=== PATIENT | male | born 1975 | race Caucasian/White ===

== ENCOUNTER 2018-07-29 09:32 | Inpatient (IN) | payer OTHER ==
--- NOTE | 2018-07-29 09:49 | HP ---
COWS - Scale Resting Pulse: 1= [place] 81-100 Sweatin= Chills/Flushing Restless Observation: 3= Extraneous Movement Pupil Size: 1= Pupils >than Normal Bone or Joint Aches: 2= Severe Diffuse Aches Runny Nose/ Eye Tearin= Runny Nose/Eyes GI Upset > 30mins: 3= Vomiting/Diarrhea Tremor Observation: 2= Slight Tremor Visible Yawning Observation: 2= >3x During Session Anxiety or Irritability: 2=Irritable/Anxious Goose Flesh Skin: 0=Smooth Skin COWS Score: 19 Admission ROS S - HPI Chief Complaint: i need help to stop using heroin and klonopin Allergies/Adverse Reactions: Allergies Allergy/AdvReac Type Severity Reaction Status Date / Time No Known Allergies Allergy Verified 07/29/18 11:22 History of Present Illness: this 42 years old male with heroin and klonopin dependence,seeking detox, patient has been prescribed suboxone 8mgs/2 mgs bid and klonopin 1 mg daily patient did not want to continue suboxone any more and the provider agreed for the patient for detox weight loss 20 lbs on probation nicotine dependence anxiety,depression,insomnia longest period of sobriety 2 years multiple admissions last detox ,last [facility]/15 to 10/25/15 not completed Exam Limitations: No Limitations - Ebola screening Have you traveled outside of the country in the last 21 days: No Have you had contact with anyone from an Ebola affected area: No Do you have a fever: No - Review of Systems Constitutional: Loss of Appetite, Malaise, Night Sweats, Changes in sleep, Weakness, Unintentional Wgt. Loss EENT: reports: Tearing, Nose Congestion Respiratory: reports: No Symptoms reported Cardiac: reports: No Symptoms Reported GI: reports: Nausea, Vomiting, Abdominal cramping : reports: No Symptoms Reported Musculoskeletal: reports: Back Pain, Joint Pain, Muscle Pain, Joint Stiffness Integumentary: reports: Dryness Neuro: reports: Headache, Tremors Endocrine: reports: No Symptoms Reported Hematology: reports: No Symptoms Reported Psychiatric: reports: No Sypmtoms Reported, Judgement Intact, Mood/Affect Appropiate, Orientated x3, Agitated, Depressed Patient History - Patient Medical History Hx Anemia: No Hx Asthma: No Hx Chronic Obstructive Pulmonary Disease (COPD): No Hx Cancer: No Hx Cardiac Disorders: No Hx Congestive Heart Failure: No Hx Hypertension: No Hx Hypercholesterolemia: No Hx Pacemaker: No HX Cerebrovascular Accident: No Hx Seizures: No Hx Dementia: No Hx Diabetes: No Hx Gastrointestinal Disorders: No Hx Liver Disease: Yes Hx Genitourinary Disorders: No Hx Sexually Transmitted Disorders: No Hx Renal Disease (ESRD): No Hx Thyroid Disease: No Hx Human Immunodeficiency Virus (HIV): No Hx Hepatitis C: Yes (not treated) Hx Depression: Yes Hx Suicide Attempt: Yes (2008) Hx Bipolar Disorder: Yes (sees psych, on meds) Hx Schizophrenia: No Other Medical History: hepatitis c,no suicidal,no homicidal - Patient Surgical History Past Surgical History: No Hx Neurologic Surgery: No Hx Cataract Extraction: No Hx Cardiac Surgery: No Hx Lung Surgery: No Hx Breast Surgery: No Hx Breast Biopsy: No Hx Abdominal Surgery: No Hx Appendectomy: No Hx Cholecystectomy: No Hx Genitourinary Surgery: No Hx Section: No Hx Orthopedic Surgery: No Anesthesia Reaction: No - PPD History Previous Implant?: Yes Documented Results: Positive w/o proof [facility] Yes Date: 01/14/15 Results: 0mm PPD to be Administered?: Yes - Smoking Cessation Smoking history: Current every day smoker Have you smoked in the past 12 months: Yes Aproximately how many cigarettes per day: 10 Hx Chewing Tobacco Use: No Initiated information on smoking cessation: Yes 'Breaking Loose' booklet given: 07/29/18 - Substance & Tx. History Hx Alcohol Use: No Hx Substance Use: Yes Substance Use Type: Heroin, Tranquilizers Hx Substance Use Treatment: Yes ([facility] 10/23/15 to 10/25/15 not copleted) - Substances Abused Heroin Route: Injection Frequency: Daily Amount used: 5-6 bags Age of first use: 18 Date of Last Use: 07/28/18 Benzodiazepine (Klonopin) Route: Oral Frequency: Daily Amount used: 1 mg Age of first use: 42 Date of Last Use: 07/29/18 Family Disease History - Family Disease History Family Disease History: Other: Father (drug use, hep C,cirrhosis,), Mother (drug overdose,) Admission Physical Exam BHS - Vital Signs Vital Signs: Vital Signs Temperature 97.8 F 07/29/18 09:43 Pulse Rate 85 07/29/18 09:43 Respiratory Rate 16 07/29/18 09:43 Blood Pressure 134/87 07/29/18 09:43 O2 Sat by Pulse Oximetry (%) - Physical General Appearance: Yes: Moderate Distress, Irritable, Sweating, Anxious HEENTM: Yes: Normal ENT Inspection, ELY, Pharynx Normal Respiratory: Yes: Lungs Clear, Normal Breath Sounds, No Respiratory Distress Neck: Yes: Within Normal Limits, Supple, Trachea in good position Breast: Yes: Within Normal Limits Cardiology: Yes: Within Normal Limits, Regular Rhythm, Regular Rate, S1, S2 Abdominal: Yes: Within Normal Limits, Normal Bowel Sounds, Non Tender, Flat, Soft Genitourinary: Yes: Within Normal Limits Back: Yes: Muscle Spasm Musculoskeletal: Yes: Back pain, Muscle Pain Extremities: Yes: Normal Range of Motion, Tremors Neurological: Yes: software performance engineer II-XII NML intact, Fully Oriented, Alert, Motor Strength 5/5 Integumentary: Yes: Dry Lymphatic: Yes: Within Normal Limits - Diagnostic (1) Opioid dependence with withdrawal Current Visit: No Status: Acute (2) Benzodiazepine dependence Current Visit: No Status: Acute (3) Bipolar depression Current Visit: No Status: Acute (4) Nicotine dependence Current Visit: No Status: Acute Qualifiers: Nicotine product type: cigarettes Substance use status: uncomplicated Qualified Code(s): F17.210 - Nicotine dependence, cigarettes, uncomplicated (5) Hepatitis C Current Visit: No Status: Chronic Qualifiers: Viral hepatitis chronicity: chronic Hepatic coma status: without hepatic coma Qualified Code(s): B18.2 - Chronic viral hepatitis C (6) Weight loss Current Visit: Yes Status: Acute Cleared for Admission [facility] - Detox or Rehab [facility] Level of Care: Medically Managed Detox Regimen/Protocol: Methadone [facility] Breath Alcohol Content Breath Alcohol Content: 0
[2018-07-29 09:50] VITALS: BMI 26.6
[2018-07-29] MEDS ORDERED: LOPERAMIDE HCL 2 MG CAPSULE PO PRN (12:33)
[2018-07-29] MEDS ORDERED: MAGNESIUM CITRATE 300 ML BOTTLE PO PRN (12:33)
[2018-07-29] MEDS ORDERED: MAG HYDROX/AL HYDROX/SIMETH 30 ML UNIT-DOSE CUP PO PRN (12:33)
[2018-07-29] MEDS ORDERED: MENTHOL/PHENOL 1 EACH UD MM PRN (12:33)
[2018-07-29] MEDS ORDERED: NICOTINE POLACRILEX 2 MG GUM BC PRN (12:33)
[2018-07-29] MEDS ORDERED: IBUPROFEN 400 MG TABLET (FP) PO PRN (12:33)
[2018-07-29] MEDS ORDERED: guaiFENesin/D-METHORPHAN HB 10 ML UNIT-DOSE CUPS PO PRN (12:33)
[2018-07-29] MEDS ORDERED: ACETAMINOPHEN 325 MG TABLET (FP) PO PRN (12:33)
[2018-07-29] MEDS ORDERED: P-EPHED 60MG/TRIPROLIDI 2.5MG TABLET PO PRN (12:33)
[2018-07-29] MEDS ORDERED: MAGNESIUM HYDROX 2400MG/30ML ORAL SUSPENSION 30 ML CUP PO PRN (12:33)
[2018-07-29] MEDS ORDERED: METHADONE HCL 10 MG TABLET (FOR DETOX USE ONLY) PO ONE ×2 (13:45→23:00)
[2018-07-29 18:52] LABS: URINE APPEARANCE CLOUDY; URINE BILIRUBIN NEGATIVE (<2.0 mg/dL); URINE COLOR DKYELLOW; URINE GLUCOSE (UA) NEGATIVE (NEGATIVE); URINE KETONE NEGATIVE (NEGATIVE); URINE LEUK ESTERASE NEGATIVE (NEGATIVE); URINE NITRITE NEGATIVE (NEGATIVE); URINE PROTEIN NEGATIVE (NEGATIVE); URINE UROBILINOGEN 4.0 E.U/dl mg/dL (0.2-1.0)
[2018-07-29] MEDS: cloNIDine HCL 0.1 MG TABLET PO SCH (22:14)
[2018-07-29] MEDS: THIAMINE HCL 100 MG TABLET (FP) PO SCH (22:14)
[2018-07-29] MEDS: MELATONIN 5 MG TABLETS PO PRN (22:15)
[2018-07-29] MEDS: diazePAM 5 MG TABLET PO PRN (22:17)
[2018-07-30] MEDS ORDERED: METHADONE HCL 10 MG TABLET (FOR DETOX USE ONLY) PO ONE (10:00)
[2018-07-30] MEDS: PRENATAL VITAMINS W/ FOLIC ACID TABLET (FP) PO SCH (10:31)
[2018-07-30] MEDS: cloNIDine HCL 0.1 MG TABLET PO SCH ×2 (10:31→22:09)
[2018-07-30] MEDS: diazePAM 5 MG TABLET PO PRN ×2 (10:31→22:09)
[2018-07-30 10:34] LABS: HEMATOCRIT 45.5 % (35.4-49); HEMOGLOBIN 14.8 GM/dL (11.7-16.9); MCHC 32.6 g/dl (32.0-35.9); PLATELET COUNT 253 K/MM3 (134-434); RBC 5.29 M/mm3 (4.00-5.60); RDW 13.9 % (11.9-15.9); WHITE BLOOD COUNT 6.3 K/mm3 (4.0-10.0)
--- NOTE | 2018-07-30 11:07 | EKG ---
Test Reason : Blood Pressure : / mmHG Vent. Rate : 079 BPM Atrial Rate : 079 BPM P-R Int : 162 ms QRS Dur : 080 ms QT Int : 358 ms P-R-T Axes : 065 051 057 degrees QTc Int : 410 ms NORMAL SINUS RHYTHM NORMAL ECG NO PREVIOUS ECGS AVAILABLE Confirmed by Nithin Peña MD ([id number]) on 07/30/2018 11:07:16 AM Referred By: Confirmed By:Nithin Peña MD
[2018-07-30 11:09] LABS: ALBUMIN 3.6 g/dl (3.4-5.0); ALK PHOS 99 U/L (45-117); ANION GAP 11 MMOL/L (8-16); BILIRUBIN,TOTAL 1.2 mg/dL (0.2-1); BLOOD UREA NITROGEN 13 mg/dL (7-18); CALCIUM 9.7 mg/dL (8.5-10.1); CHLORIDE 106 mmol/L (98-107); CO2 27 mmol/L (21-32); CREATININE 0.9 mg/dL (0.55-1.3); GLUCOSE,RANDOM 97 mg/dL (74-106); POTASSIUM 4.4 mmol/L (3.5-5.1); SGOT/AST 21 U/L (15-37); SGPT/ALT 41 U/L (13-61); SODIUM 143 mmol/L (136-145); TOT PROT 7.1 g/dl (6.4-8.2)
--- NOTE | 2018-07-30 14:17 | PN ---
BHS COWS - Scale Resting Pulse: 1= [place] 81-100 Sweatin= Chills/Flushing Restless Observation: 3= Extraneous Movement Pupil Size: 0= Normal to Room Light Bone or Joint Aches: 2= Severe Diffuse Aches Runny Nose/ Eye Tearin= Runny Nose/Eyes GI Upset > 30mins: 3= Vomiting/Diarrhea Tremor Observation of Outstretched Hands: 2= Slight Tremor Visible Yawning Observation: 1= 1-2x During Session Anxiety or Irritability: 2=Irritable/Anxious Goose Flesh Skin: 0=Smooth Skin COWS Score: 17 S Progress Note (SOAP) Subjective: Watery eyes, runny nose, sneezing, sweating Objective: 07/30/18 14:16 Last Vital Signs Temp Pulse Resp BP Pulse Ox 97.0 F L 83 20 116/79 07/30/18 13:42 07/30/18 13:42 07/30/18 13:42 07/30/18 13:42 Laboratory Tests 07/29/18 07/29/18 07/30/18 11:50 15:25 06:00 WBC 6.3 RBC 5.29 Hgb 14.8 Hct 45.5 MCV 86.0 MCH 28.0 MCHC 32.6 RDW 13.9 Plt Count 253 MPV 9.0 Sodium Potassium Chloride Carbon Dioxide Anion Gap BUN Creatinine Creat Clearance w eGFR Random Glucose Calcium Total Bilirubin AST ALT Alkaline Phosphatase Total Protein Albumin Urine Color Dkyellow Urine Appearance Cloudy Urine pH 7.0 Ur Specific [place] 1.018 Urine Protein Negative Urine Glucose (UA) Negative Urine Ketones Negative Urine Blood Negative Urine Nitrite Negative Urine Bilirubin Negative Urine Urobilinogen 4.0 e.u/dl Ur Leukocyte Esterase Negative RPR Titer HIV 1&2 Antibody Screen Negative HIV P24 Antigen Negative 07/30/18 07/30/18 06:00 06:00 WBC RBC Hgb Hct MCV MCH MCHC RDW Plt Count MPV Sodium 143 Potassium 4.4 Chloride 106 Carbon Dioxide 27 Anion Gap 11 BUN 13 Creatinine 0.9 Creat Clearance w eGFR > 60 Random Glucose 97 Calcium 9.7 Total Bilirubin 1.2 H AST 21 ALT 41 Alkaline Phosphatase 99 Total Protein 7.1 Albumin 3.6 Urine Color Urine Appearance Urine pH Ur Specific [place] Urine Protein Urine Glucose (UA) Urine Ketones Urine Blood Urine Nitrite Urine Bilirubin Urine Urobilinogen Ur Leukocyte Esterase RPR Titer Nonreactive HIV 1&2 Antibody Screen HIV P24 Antigen Labs reviewed Assessment: 07/30/18 14:17 Withdrawal sxs Plan: Continue detox Encouraged PO water hydration
--- NOTE | 2018-07-30 18:39 | CONSULT ---
[facility] Psychiatric Consult - Data Date of interview: 07/30/18 Admission source: [facility] Identifying data: This is one of multiple admissions to [facility] for this 42 y/ o male seeking detox treatment, at [address] [place] [address] for heroin dependence. Patient is single,a father of two (claimed three at a previous interview), domiciled and currently employed on a part-time basis. Substance Abuse History: Confirmed by the patient in this session. Details in current [facility] report : Smoking history: Current every day smoker. Have you smoked in the past 12 months: Yes. Aproximately how many cigarettes per day: 10. Hx Chewing Tobacco Use: No. Initiated information on smoking cessation: Yes. 'Breaking Loose' booklet given: 07/29/18. - Substance & Tx. History. Hx Alcohol Use: No. Hx Substance Use: Yes. Substance Use Type: Heroin, Tranquilizers. Hx Substance Use Treatment: Yes ([facility] 10/23/15 to 10/25/15 not copleted). - Substances Abused. Heroin. Route: Injection. Frequency: Daily. Amount used: 5-6 bags. Age of first use: 18. Date of Last Use: . Benzodiazepine (Klonopin). Route: Oral. Frequency: Daily. Amount used : 1 mg. Age of first use: 42. Date of Last Use: 07/29/18 Medical History: Hepatitis C. Psychiatric History: Patient reports a history of one psychiatric hospitalization since 2008 ([facility] 2).Diagnosed with Bipolar Disorder. Currently maintained on a regimen of zoloft 50 mg/day + topamax 100 mg/ day.Patient gets his OPD care at the [facility] in [facility].History of suicidal ideation with plan to jump off a roof in 2008 but was saved by a friend (admitted to [facility]). Physical/Sexual Abuse/Trauma History: Patient denies. Additional Comment: Toxicology not available on admission. Mental Status Exam - Mental Status Exam Alert and Oriented to: Time, Place, Person Cognitive Function: Good Patient Appearance: Well Groomed Mood: Nervous, Withdrawn, Hopeful Affect: Mood Congruent Patient Behavior: Fatigued, Cooperative Speech Pattern: Clear, Appropriate Thought Process: Intact, Goal Oriented Thought Disorder: Not Present Hallucinations: Denies Suicidal Ideation: Denies Homicidal Ideation: Denies Insight/Judgement: Poor Sleep: Poorly, Difficulty falling asleep Appetite: Good Muscle strength/Tone: Normal Gait/Station: Normal Psychiatric Findings - Problem List ([place] 1, 2,3) (1) Opioid dependence with withdrawal Current Visit: Yes Status: Acute (2) Uncomplicated sedative, hypnotic or anxiolytic withdrawal Current Visit: Yes Status: Acute (3) Nicotine dependence Current Visit: Yes Status: Acute Qualifiers: Nicotine product type: cigarettes Substance use status: uncomplicated Qualified Code(s): F17.210 - Nicotine dependence, cigarettes, uncomplicated (4) Benzodiazepine dependence Current Visit: Yes Status: Acute (5) Substance induced mood disorder Current Visit: Yes Status: Acute (6) Bipolar disorder Current Visit: Yes Status: Chronic Comment: As per self-report.On medications. (7) Insomnia Current Visit: Yes Status: Acute - Initial Treatment Plan Initial Treatment Plan: Psychoeducation.Sleep hygiene.Detoxification in progress.Resume topamax 100 mg po daily + zoloft 50 mg po daily.Side effects/ benefits of both drugs are discussed with the patient.Agrees to careplan.Observation.
[2018-07-30] MEDS: THIAMINE HCL 100 MG TABLET (FP) PO SCH (22:09)
[2018-07-30] MEDS: CYCLOBENZAPRINE HCL 10 MG TABLET (FP) PO PRN (22:09)
[2018-07-31] MEDS ORDERED: METHADONE HCL 5 MG TABLET (FOR DETOX USE ONLY) PO ONE (10:00)
[2018-07-31] MEDS: SERTRALINE HCL 50 MG TABLET (FP) PO SCH (10:14)
[2018-07-31] MEDS: diazePAM 5 MG TABLET PO PRN ×2 (10:14→22:20)
[2018-07-31] MEDS: PRENATAL VITAMINS W/ FOLIC ACID TABLET (FP) PO SCH (10:14)
[2018-07-31] MEDS: cloNIDine HCL 0.1 MG TABLET PO SCH ×2 (10:14→22:21)
[2018-07-31] MEDS: TOPIRAMATE 100 MG TABLET PO SCH (10:15)
--- NOTE | 2018-07-31 14:22 | PN ---
BHS COWS - Scale Resting Pulse: 1= [place] 81-100 Sweatin= Chills/Flushing Restless Observation: 3= Extraneous Movement Pupil Size: 0= Normal to Room Light Bone or Joint Aches: 2= Severe Diffuse Aches Runny Nose/ Eye Tearin= Runny Nose/Eyes GI Upset > 30mins: 1= Stomach Cramp Tremor Observation of Outstretched Hands: 2= Slight Tremor Visible Yawning Observation: 1= 1-2x During Session Anxiety or Irritability: 2=Irritable/Anxious Goose Flesh Skin: 0=Smooth Skin COWS Score: 15 BHS Progress Note (SOAP) Subjective: Stomach ache, sweating Objective: 07/31/18 14:22 Last Vital Signs Temp Pulse Resp BP Pulse Ox 96.6 F L 84 18 105/69 07/31/18 13:37 07/31/18 13:37 07/31/18 13:37 07/31/18 13:37 Laboratory Tests 07/29/18 07/29/18 07/30/18 11:50 15:25 06:00 WBC 6.3 RBC 5.29 Hgb 14.8 Hct 45.5 MCV 86.0 MCH 28.0 MCHC 32.6 RDW 13.9 Plt Count 253 MPV 9.0 Sodium Potassium Chloride Carbon Dioxide Anion Gap BUN Creatinine Creat Clearance w eGFR Random Glucose Calcium Total Bilirubin AST ALT Alkaline Phosphatase Total Protein Albumin Urine Color Dkyellow Urine Appearance Cloudy Urine pH 7.0 Ur Specific [place] 1.018 Urine Protein Negative Urine Glucose (UA) Negative Urine Ketones Negative Urine Blood Negative Urine Nitrite Negative Urine Bilirubin Negative Urine Urobilinogen 4.0 e.u/dl Ur Leukocyte Esterase Negative RPR Titer HIV 1&2 Antibody Screen Negative HIV P24 Antigen Negative 07/30/18 07/30/18 06:00 06:00 WBC RBC Hgb Hct MCV MCH MCHC RDW Plt Count MPV Sodium 143 Potassium 4.4 Chloride 106 Carbon Dioxide 27 Anion Gap 11 BUN 13 Creatinine 0.9 Creat Clearance w eGFR > 60 Random Glucose 97 Calcium 9.7 Total Bilirubin 1.2 H AST 21 ALT 41 Alkaline Phosphatase 99 Total Protein 7.1 Albumin 3.6 Urine Color Urine Appearance Urine pH Ur Specific [place] Urine Protein Urine Glucose (UA) Urine Ketones Urine Blood Urine Nitrite Urine Bilirubin Urine Urobilinogen Ur Leukocyte Esterase RPR Titer Nonreactive HIV 1&2 Antibody Screen HIV P24 Antigen Labs reviewed Assessment: 07/31/18 14:23 Withdrawal sxs Plan: Continue detox
[2018-07-31] MEDS: THIAMINE HCL 100 MG TABLET (FP) PO SCH (22:20)
[2018-07-31] MEDS: MELATONIN 5 MG TABLETS PO PRN (22:21)
[2018-08-01] MEDS ORDERED: METHADONE HCL 5 MG TABLET (FOR DETOX USE ONLY) PO ONE (10:00)
[2018-08-01] MEDS: PRENATAL VITAMINS W/ FOLIC ACID TABLET (FP) PO SCH (10:25)
[2018-08-01] MEDS: TOPIRAMATE 100 MG TABLET PO SCH (10:25)
[2018-08-01] MEDS: cloNIDine HCL 0.1 MG TABLET PO SCH ×2 (10:26→23:00)
[2018-08-01] MEDS: diazePAM 5 MG TABLET PO PRN (10:26)
[2018-08-01] MEDS: SERTRALINE HCL 50 MG TABLET (FP) PO SCH (10:26)
--- NOTE | 2018-08-01 13:19 | PN ---
BHS Progress Note (SOAP) Subjective: Interrupted sleep, anxious Objective: 08/01/18 13:17 Last Vital Signs Temp Pulse Resp BP Pulse Ox 97.3 F L 80 17 101/67 08/01/18 09:30 08/01/18 09:30 08/01/18 09:30 08/01/18 09:30 Laboratory Tests 07/29/18 07/29/18 07/30/18 11:50 15:25 06:00 WBC 6.3 RBC 5.29 Hgb 14.8 Hct 45.5 MCV 86.0 MCH 28.0 MCHC 32.6 RDW 13.9 Plt Count 253 MPV 9.0 Sodium Potassium Chloride Carbon Dioxide Anion Gap BUN Creatinine Creat Clearance w eGFR Random Glucose Calcium Total Bilirubin AST ALT Alkaline Phosphatase Total Protein Albumin Urine Color Dkyellow Urine Appearance Cloudy Urine pH 7.0 Ur Specific [place] 1.018 Urine Protein Negative Urine Glucose (UA) Negative Urine Ketones Negative Urine Blood Negative Urine Nitrite Negative Urine Bilirubin Negative Urine Urobilinogen 4.0 e.u/dl Ur Leukocyte Esterase Negative RPR Titer HIV 1&2 Antibody Screen Negative HIV P24 Antigen Negative 07/30/18 07/30/18 06:00 06:00 WBC RBC Hgb Hct MCV MCH MCHC RDW Plt Count MPV Sodium 143 Potassium 4.4 Chloride 106 Carbon Dioxide 27 Anion Gap 11 BUN 13 Creatinine 0.9 Creat Clearance w eGFR > 60 Random Glucose 97 Calcium 9.7 Total Bilirubin 1.2 H AST 21 ALT 41 Alkaline Phosphatase 99 Total Protein 7.1 Albumin 3.6 Urine Color Urine Appearance Urine pH Ur Specific [place] Urine Protein Urine Glucose (UA) Urine Ketones Urine Blood Urine Nitrite Urine Bilirubin Urine Urobilinogen Ur Leukocyte Esterase RPR Titer Nonreactive HIV 1&2 Antibody Screen HIV P24 Antigen Labs reviewed Assessment: 08/01/18 13:18 Withdrawal sxs Plan: Continue detox
[2018-08-01] MEDS: CYCLOBENZAPRINE HCL 10 MG TABLET (FP) PO PRN (23:00)
[2018-08-01] MEDS: THIAMINE HCL 100 MG TABLET (FP) PO SCH (23:00)
[2018-08-01] MEDS: MELATONIN 5 MG TABLETS PO PRN (23:01)
[2018-08-01] MEDS: hydrOXYzine PAMOATE 25 MG CAPSULE (FP) PO PRN (23:01)
[2018-08-02] MEDS ORDERED: METHADONE HCL 10 MG TABLET (FOR DETOX USE ONLY) PO ONE (10:00)
[2018-08-02] MEDS: PRENATAL VITAMINS W/ FOLIC ACID TABLET (FP) PO SCH (10:25)
[2018-08-02] MEDS: hydrOXYzine PAMOATE 25 MG CAPSULE (FP) PO PRN (10:25)
[2018-08-02] MEDS: cloNIDine HCL 0.1 MG TABLET PO SCH ×2 (10:25→22:20)
[2018-08-02] MEDS: TOPIRAMATE 100 MG TABLET PO SCH (10:25)
[2018-08-02] MEDS: SERTRALINE HCL 50 MG TABLET (FP) PO SCH (10:25)
--- NOTE | 2018-08-02 16:13 | PN ---
BHS Progress Note (SOAP) Subjective: Anxious, interrupted sleep. Patient is scheduled for discharge tomorrow and requested to leave at 7am. Objective: 08/02/18 16:11 Last Vital Signs Temp Pulse Resp BP Pulse Ox 98.0 F 79 17 104/69 08/02/18 13:38 08/02/18 13:38 08/02/18 13:38 08/02/18 13:38 Laboratory Tests 07/29/18 07/29/18 07/30/18 11:50 15:25 06:00 WBC 6.3 RBC 5.29 Hgb 14.8 Hct 45.5 MCV 86.0 MCH 28.0 MCHC 32.6 RDW 13.9 Plt Count 253 MPV 9.0 Sodium Potassium Chloride Carbon Dioxide Anion Gap BUN Creatinine Creat Clearance w eGFR Random Glucose Calcium Total Bilirubin AST ALT Alkaline Phosphatase Total Protein Albumin Urine Color Dkyellow Urine Appearance Cloudy Urine pH 7.0 Ur Specific [place] 1.018 Urine Protein Negative Urine Glucose (UA) Negative Urine Ketones Negative Urine Blood Negative Urine Nitrite Negative Urine Bilirubin Negative Urine Urobilinogen 4.0 e.u/dl Ur Leukocyte Esterase Negative RPR Titer HIV 1&2 Antibody Screen Negative HIV P24 Antigen Negative 07/30/18 07/30/18 06:00 06:00 WBC RBC Hgb Hct MCV MCH MCHC RDW Plt Count MPV Sodium 143 Potassium 4.4 Chloride 106 Carbon Dioxide 27 Anion Gap 11 BUN 13 Creatinine 0.9 Creat Clearance w eGFR > 60 Random Glucose 97 Calcium 9.7 Total Bilirubin 1.2 H AST 21 ALT 41 Alkaline Phosphatase 99 Total Protein 7.1 Albumin 3.6 Urine Color Urine Appearance Urine pH Ur Specific [place] Urine Protein Urine Glucose (UA) Urine Ketones Urine Blood Urine Nitrite Urine Bilirubin Urine Urobilinogen Ur Leukocyte Esterase RPR Titer Nonreactive HIV 1&2 Antibody Screen HIV P24 Antigen Labs reviewed Assessment: 08/02/18 16:12 Withdrawal sxs Plan: Continue detox
[2018-08-02] MEDS: THIAMINE HCL 100 MG TABLET (FP) PO SCH (22:20)
[2018-08-03] MEDS ORDERED: METHADONE HCL 5 MG TABLET (FOR DETOX USE ONLY) PO ONE (06:00)
[2018-08-03 06:53] VITALS: BP 100/60; PULSE 77; TEMP 97.4
--- NOTE | 2018-08-03 08:39 | DS ---
[facility] Detox Discharge Summary Admission Date: 07/29/18 Discharge Date: 08/03/18 - History Present History: Opioid Dependence Additional Comments: Patient to follow up with primary care provider in 1 - 2 weeks Pertinent Past History: Vital Signs Temperature 97.4 F L 08/03/18 06:52 Pulse Rate 77 08/03/18 06:52 Respiratory Rate 18 08/03/18 06:52 Blood Pressure 100/60 08/03/18 06:52 O2 Sat by Pulse Oximetry (%) Laboratory Last Values WBC 6.3 K/mm3 (4.0-10.0) 07/30/18 06:00 RBC 5.29 M/mm3 (4.00-5.60) 07/30/18 06:00 Hgb 14.8 GM/dL (11.7-16.9) 07/30/18 06:00 Hct 45.5 % (35.4-49) 07/30/18 06:00 MCV 86.0 fl (80-96) 07/30/18 06:00 MCH 28.0 pg (25.7-33.7) 07/30/18 06:00 MCHC 32.6 g/dl (32.0-35.9) 07/30/18 06:00 RDW 13.9 % (11.9-15.9) 07/30/18 06:00 Plt Count 253 K/MM3 (134-434) 07/30/18 06:00 MPV 9.0 fl (7.5-11.1) 07/30/18 06:00 Sodium 143 mmol/L (136-145) 07/30/18 06:00 Potassium 4.4 mmol/L (3.5-5.1) 07/30/18 06:00 Chloride 106 mmol/L (98-107) 07/30/18 06:00 Carbon Dioxide 27 mmol/L (21-32) 07/30/18 06:00 Anion Gap 11 MMOL/L (8-16) 07/30/18 06:00 BUN 13 mg/dL (7-18) 07/30/18 06:00 Creatinine 0.9 mg/dL (0.55-1.3) 07/30/18 06:00 Creat Clearance w eGFR > 60 (>60) 07/30/18 06:00 Random Glucose 97 mg/dL (74-106) 07/30/18 06:00 Calcium 9.7 mg/dL (8.5-10.1) 07/30/18 06:00 Total Bilirubin 1.2 mg/dL (0.2-1) H 07/30/18 06:00 AST 21 U/L (15-37) 07/30/18 06:00 ALT 41 U/L (13-61) 07/30/18 06:00 Alkaline Phosphatase 99 U/L (45-117) 07/30/18 06:00 Total Protein 7.1 g/dl (6.4-8.2) 07/30/18 06:00 Albumin 3.6 g/dl (3.4-5.0) 07/30/18 06:00 Urine Color Dkyellow 07/29/18 15:25 Urine Appearance Cloudy 07/29/18 15:25 Urine pH 7.0 (5.0-8.0) 07/29/18 15:25 Ur Specific [place] 1.018 (1.001-1.035) 07/29/18 15:25 Urine Protein Negative (NEGATIVE) 07/29/18 15:25 Urine Glucose (UA) Negative (NEGATIVE) 07/29/18 15:25 Urine Ketones Negative (NEGATIVE) 07/29/18 15:25 Urine Blood Negative (NEGATIVE) 07/29/18 15:25 Urine Nitrite Negative (NEGATIVE) 07/29/18 15:25 Urine Bilirubin Negative (<2.0 mg/dL) 07/29/18 15:25 Urine Urobilinogen 4.0 e.u/dl mg/dL (0.2-1.0) 07/29/18 15:25 Ur Leukocyte Esterase Negative (NEGATIVE) 07/29/18 15:25 RPR Titer Nonreactive (NONREACTIVE) 07/30/18 06:00 HIV 1&2 Antibody Screen Negative 07/29/18 11:50 HIV P24 Antigen Negative 07/29/18 11:50 - Physical Exam Results Vital Signs: Vital Signs Temperature 97.4 F L 08/03/18 06:52 Pulse Rate 77 08/03/18 06:52 Respiratory Rate 18 08/03/18 06:52 Blood Pressure 100/60 08/03/18 06:52 O2 Sat by Pulse Oximetry (%) - Treatment Hospital Course: Detox Protocol Followed, Detoxed Safely, Responded well, Discharged Condition Good Patient has Accepted a Rehab Referral to: out patient programs - Medication Discharge Medications: Ambulatory Orders Sertraline HCl [Zoloft -] 50 mg PO DAILY 07/29/18 Topiramate [Topamax] 100 mg PO DAILY 07/29/18 Sertraline HCl [Zoloft -] 50 mg PO DAILY #30 tablet 07/31/18 Topiramate [Topamax] 100 mg PO DAILY #30 tab 07/31/18 - Diagnosis (1) Opioid dependence with withdrawal Status: Acute (2) Uncomplicated sedative, hypnotic or anxiolytic withdrawal Status: Acute - AMA Did Patient Leave Against Medical Advice: No
== END 2018-08-03 06:30 | disposition home or self-care (01) | DRG 773 ==
LOC: YASAS 09:32 → Y3N 12:41
PROC: HZ2ZZZZ Detoxification Services for Substance Abuse Treatment (ICD-10-PCS; principal; 2018-07-29)
DX: F11.23 Opioid dependence with withdrawal (principal); F13.230 Sedative, hypnotic or anxiolytic dependence with withdrawal, uncomplicated; F17.210 Nicotine dependence, cigarettes, uncomplicated; F19.24 Other psychoactive substance dependence with psychoactive substance-induced mood disorder; F31.9 Bipolar disorder, unspecified; G47.00 Insomnia, unspecified; B18.2 Chronic viral hepatitis C; R63.4 Abnormal weight loss; Z68.26 Body mass index [BMI] 26.0-26.9, adult; Z91.5 Personal history of self-harm
CPT/HCPCS: 36415; 80053; 81003; 85027; 86593; 87389; 93005; 93010; J0735